=== PATIENT | female | born 1990 | race Caucasian/White ===

== ENCOUNTER 2020-04-01 18:35 | Emergency (ER) | payer SELFPAY ==
[~2020-04-01] VITALS: Ht 170.2 cm; Wt 95.7 kg
[~2020-04-01 18:35] MED LIST: IBUP-974 PO; PREN-385 PO
[2020-04-01 18:47] VITALS: BP 105/65
--- NOTE | 2020-04-01 18:48 | NUR ---
pt ambulated to room 4 with steady gait.
--- NOTE | 2020-04-01 18:50 | NUR ---
pt from home with 5 days diarrhea 4 episodes per day of watery non foul smelling , x3 days of vomiting of recently ingested food .Pt aox4 , afibrile , ambulatory with steady gait , pink palpebral conjunctiva , anicteric sclera , moist mucous membrane , sce , flat soft abdomen , good skin turgor. pmhxs denies
--- NOTE | 2020-04-01 18:52 | NUR ---
dr naqvi at bedside evaluating pt.
--- NOTE | 2020-04-01 19:02 | NUR ---
gave report to madia cosby pt comfortable in bed with stabe vss , side rails up x1 and lock at lowest position lock.
[2020-04-01] MEDS ORDERED: ONDANSETRON 4 MG/2 ML VIAL IVP ONE (19:05)
[2020-04-01] MEDS ORDERED: KETOROLAC 30 MG/ML VIAL IVP ONE (19:05)
[2020-04-01] MEDS ORDERED: NACL 0.9% 1,000 ML IV ONE (19:05)
--- NOTE | 2020-04-01 19:10 | NUR ---
RECEIVED REPORT FROM JEANNETTE LEON FOR CONTINUITY OF CARE.
--- NOTE | 2020-04-01 19:10 | NUR ---
PT RESTING IN BED, RR EVEN AND UNLABORED. NO NEW COMPLAINS AT THIS TIME. VSS. BED LOCKED AND IN LOWEST POSITION, SIDE RAIL UPX1. WILL CONTINUE TO MONITOR.
[2020-04-01 19:45] LABS: BASOPHILS # (AUTO) 0.1 K/uL (0.00-0.22); BASOPHILS % (AUTO) 0.9 % (0.0-2.0); EOSINOPHILS # (AUTO) 0.1 K/uL (0-0.4); EOSINOPHILS % (AUTO) 0.8 % (0.0-4.0); HEMATOCRIT 37.2 % (36-48); HEMOGLOBIN 11.9 g/dL (12.0-16.0); LYMPHOCYTES # (AUTO) 1.7 K/uL (2.5-16.5); LYMPHOCYTES % (AUTO) 19.4 % (20.5-51.1); MEAN CORPUSCULAR HEMOGLOBIN 26 pg (27-31); MEAN CORPUSCULAR HGB CONC 32 g/dL (33-37); MEAN CORPUSCULAR VOLUME 79.6 fL (80-94); MONOCYTES # (AUTO) 0.6 K/uL (0.8-1.0); MONOCYTES % (AUTO) 7.4 % (1.7-9.3); NEUTROPHILS # (AUTO) 6.3 K/uL (1.8-7.7); NEUTROPHILS % (AUTO) 71.5 % (42.2-75.2); PLATELET COUNT (AUTO) 296 K/uL (140-450); RED BLOOD CELL COUNT(AUTO) 4.67 MIL/uL (4.20-5.40); RED CELL DISTRIBUTION WIDTH 16.3 % (11.6-13.7); WHITE BLOOD COUNT (AUTO) 8.8 K/uL (4.8-10.8)
[2020-04-01 20:05] LABS: ALBUMIN 3.4 g/dL (3.4-5.0); ANION GAP 12.2 (8-16); CARBON DIOXIDE 25.7 mmol/L (21-32); CREATININE 0.9 mg/dL (0.6-1.3); TOTAL BILIRUBIN 0.3 mg/dL (0.0-1.0)
[2020-04-01 20:06] LABS: POTASSIUM 2.9 mmol/L (3.5-5.1)
[2020-04-01] MEDS ORDERED: POTASSIUM CHLORIDE 20% 40 MEQ/15 ML UDC PO ONE ×2 (20:10→20:55)
[2020-04-01 21:42] VITALS: BP 105/65
== END 2020-04-01 21:42 | disposition home or self-care (01) ==
LOC: MED 18:35
DX: A08.4 Viral intestinal infection, unspecified (principal); Z79.899 Other long term (current) drug therapy
CPT/HCPCS: 36415; 74022; 80053; 81002; 81025; 83690; 85025; 96361; 96374; 96375; 99284; J1885; J2405; J7030